=== PATIENT | female | born 1970 | race Caucasian/White ===

== ENCOUNTER 2017-01-22 11:47 | Emergency (ER) | payer BC ==
[2017-01-22 12:13] VITALS: BP 176/95; PULSE 125; RESP 18; TEMP 98.3
[2017-01-22] MEDS ORDERED: KETOROLAC 60 MG/2 ML VIAL IM STA (12:23)
--- NOTE | 2017-01-22 12:25 | ED ---
Female Urogenital HPI - General Chief complaint: Urogenital Stated complaint: POSS UTI/KIDNEY STONE Time Seen by Provider: 01/22/17 12:15 Source: patient, RN notes reviewed Mode of arrival: ambulatory Limitations: no limitations - History of Present Illness Initial comments: Patient is a 46-year-old female recently went to [facility] express a sinus of hematuria. She was diagnosed with urinary tract infection but did not started to take her antibiotics. Patient reports that over the past week she's had intermittent times of pelvic pressure. Patient reports that she is concerned she had a kidney stone. She denies abdominal pain or flank pain. Patient reports that she just continues to feel she needs to urinate. Patient states that she also was diagnosed with ketones in her urine. She has no history of diabetes. Patient denies any fever or chills. Patient's surgical history includes hysterectomy. Patient denies any other significant past medical history. - Related Data Home Medications Medication Instructions Recorded Confirmed Cetirizine HCl [Zyrtec] 10 mg PO DAILY 01/22/17 01/22/17 Allergies Allergy/AdvReac Type Severity Reaction Status Date / Time No Known Allergies Allergy Verified 01/22/17 12:09 Review of Systems ROS Statement: Those systems with pertinent positive or pertinent negative responses have been documented in the HPI. ROS Other: All systems not noted in ROS Statement are negative. Past Medical History Past Medical History: No Reported History History of Any Multi-Drug Resistant Organisms: None Reported Past Surgical History: Section Past Psychological History: No Psychological Hx Reported Smoking Status: Never smoker Past Alcohol Use History: None Reported Past Drug Use History: None Reported General Exam - General Exam Comments Initial Comments: Pleasant 46-year-old female. No distress. Limitations: no limitations General appearance: alert, in no apparent distress Head exam: Present: atraumatic, normocephalic, normal inspection Eye exam: Present: normal appearance, PERRL, EOMI. Absent: scleral icterus, conjunctival injection, periorbital swelling ENT exam: Present: normal exam, normal oropharynx, mucous membranes moist Neck exam: Present: normal inspection. Absent: tenderness, meningismus, lymphadenopathy Respiratory exam: Present: normal lung sounds bilaterally. Absent: respiratory distress, wheezes, rales, rhonchi, stridor Cardiovascular Exam: Present: regular rate, normal rhythm, normal heart sounds. Absent: systolic murmur, diastolic murmur, rubs, gallop, clicks GI/Abdominal exam: Present: soft, normal bowel sounds. Absent: distended, tenderness, guarding, rebound, rigid Extremities exam: Present: normal inspection, full ROM, normal capillary refill. Absent: tenderness, pedal edema, joint swelling, calf tenderness Back exam: Present: normal inspection Neurological exam: Present: alert, oriented X3, CN II-XII intact Psychiatric exam: Present: normal affect, normal mood Skin exam: Present: warm, dry, intact, normal color. Absent: rash Course Vital Signs 01/22/17 12:09 Temperature 98.3 F Pulse Rate 125 H Respiratory 18 Rate Blood Pressure 176/95 O2 Sat by Pulse 97 Oximetry Medical Decision Making - Medical Decision Making Patient is a 46-year-old female chief complaint of lower pelvic pressure. She saw a primary urgent care today stated that she had some blood in her urine as well as ketones. Patient reports that she's had this pelvic pressure FOR PAST WEEK. PATIENT IS CONCERNED FROM THE URGENT CARES FINDINGS OF A POSSIBLE KIDNEY STONE. SHE STATES THAT SHE HAS NO ABDOMINAL PAIN OR FLANK PAIN. PATIENT ACCU- CHEK WAS 94, URINALYSIS REVEALED NO EVIDENCE OF HEMATURIA, patient did have 2+ ketones in her urine.. PATIENT ALSO RECEIVED A KUB, KUB is negative for any acute process. No evidence of stones. Discussed the findings with the patient. Discussed that if she can complete the round of antibiotics fro the urgent care, and concerned of infection however we have no signs of infection here. Patient also advised to follow-up with [facility] specialist, patient did refuse pelvic exam. She states that she has no bulging or prolapse BLADDER. Patient agrees that she needs to follow-up with [facility]. Discussion is remain hydrated. Patient agrees with treatment plan will comply. Return parameters were discussed. - Lab Data Lab Results 01/22/17 01/22/17 01/22/17 Range/Units 12:15 12:15 12:44 POC Glucose (mg/dL) 94 (75-99) mg/dL POC Glu [employer] ID [place] Urine Color Light Yellow Urine Appearance Clear (Clear) Urine pH 5.0 (5.0-8.0) Ur Specific [place] 1.005 (1.001-1.035) Urine Protein Negative (Negative) Urine Glucose (UA) Negative (Negative) Urine Ketones 2+ H (Negative) Urine Blood Negative (Negative) Urine Nitrite Negative (Negative) Urine Bilirubin Negative (Negative) Urine Urobilinogen <2.0 (<2.0) mg/dL Ur Leukocyte Esterase Negative (Negative) Urine HCG, Qual Not Detected (Not Detectd) - Radiology Data Radiology results: report reviewed KUB was completely is negative for any acute process. Disposition Clinical Impression: Pelvic pressure in female Clinical Impression: (Ruled Out): Inguinal hernia Disposition: HOME SELF-CARE Condition: Good Instructions: Pelvic Pain in Women (ED) Additional Instructions: Patient has a follow-up with primary care provider. Patient also instructed to follow-up with [employer] RECEIVABLE ANALYST. Return to emergency department if any alarming signs or symptoms occur. Referrals: Yanely Mcneal MD [Primary Care Provider] - 1-2 days Sukhwinder Mckeon MD [STAFF PHYSICIAN] - 1-2 days Time of Disposition: 12:58
[2017-01-22 12:40] LABS: Appearance,Urine Clear (Clear); Bilirubin,Urine Negative (Negative); Glucose,Urine (UA) Negative (Negative); Ketones,Urine 2+ (Negative); Leukocyte Esterase,Urine Negative (Negative); Nitrite,Urine Negative (Negative); Protein,Urine Negative (Negative); Specific Gravity,Urine 1.005 (1.001-1.035); UA Billing (MACRO vs. MICRO) CHEM; Urobilinogen,Urine <2.0 mg/dL (<2.0)
[2017-01-22 12:45] LABS: Glucose,Whole Blood 94 mg/dL (75-99)
--- NOTE | 2017-01-22 13:11 | XR ---
EXAMINATION TYPE: XR KUB DATE OF EXAM: 01/22/2017 12:40 PM COMPARISON: NONE HISTORY: Pain TECHNIQUE: Single supine KUB image of the abdomen is obtained FINDINGS: Small bowel demonstrates no evidence for dilatation or air fluid levels. Gas and fecal material is seen in non-distended colon. No convincing evidence for pneumoperitoneum. No unusual calcifications. The lung bases are clear. The osseous structures are intact. IMPRESSION: 1. Overall nonobstructive bowel gas pattern.
== END 2017-01-22 13:11 | disposition home or self-care (01) ==
LOC: EC 11:47
DX: N94.89 Other specified conditions associated with female genital organs and menstrual cycle (principal); R82.4 Acetonuria; Z79.899 Other long term (current) drug therapy; Z90.710 Acquired absence of both cervix and uterus; Z53.20 Procedure and treatment not carried out because of patient's decision for unspecified reasons
CPT/HCPCS: 36415; 74000; 81003; 81025; 87086; 99283

== ENCOUNTER → 2017-02-06 | Outpatient (CLI) | payer BC ==
[2017-02-06 09:36] LABS: CH 30.2; CHCM 35.7; HCT 44.1 % (34.0-46.0); HDW 2.85; HGB 15.3 gm/dL (11.4-16.0); Large Platelets Flag Marked; MCH 29.6 pg (25.0-35.0); MCHC 34.7 g/dL (31.0-37.0); MCV 85.1 fL (80.0-100.0); Mean Platelet Volume 14.8; RBC 5.18 m/uL (3.80-5.40); RDW 13.3 % (11.5-15.5); WBC 5.6 k/uL (3.8-10.6)
[2017-02-06 10:58] LABS: ALT 31 U/L (9-52); AST 20 U/L (14-36); Alkaline Phosphatase 65 U/L (38-126); Anion Gap 10 mmol/L; Blood Urea Nitrogen 19 mg/dL (7-17); Calcium 9.1 mg/dL (8.4-10.2); Carbon Dioxide 24 mmol/L (22-30); Chloride 104 mmol/L (98-107); Cholesterol 181 mg/dL (<200); Glucose 92 mg/dL (74-99); HDL Cholesterol 54 mg/dL (40-60); Non-African American GFR(MDRD) >60 (>60 ml/min/1.73 sqM); Potassium 4.1 mmol/L (3.5-5.1); Sodium 138 mmol/L (137-145); Total Bilirubin 0.9 mg/dL (0.2-1.3); Total Protein 7.2 g/dL (6.3-8.2); Triglycerides 83 mg/dL (<150)
== END | disposition home or self-care (01) ==
LOC: LABWHC1 08:20
PROVIDERS: ATTEND Internal Medicine
DX: Z00.00 Encounter for general adult medical examination without abnormal findings (principal); E01.0 Iodine-deficiency related diffuse (endemic) goiter
CPT/HCPCS: 36415; 80053; 80061; 84439; 84443; 85027

== ENCOUNTER → 2017-02-14 | Outpatient (CLI) | payer BC ==
--- NOTE | 2017-02-14 13:32 | MM ---
Reason for exam: screening (asymptomatic). Baseline mammogram. History: Patient had first child at age 38. Physical Findings: Nurse did not find any significant physical abnormalities on exam. MG Screening Mammo w CAD Bilateral CC and MLO view(s) were taken. The breast tissue is heterogeneously dense. This may lower the sensitivity of mammography. No suspicious calcifications are seen. Bilateral breast nodules seen. These results were verbally communicated with the patient and result sheet given to the patient on 02/14/17. ASSESSMENT: Incomplete: need additional imaging evaluation, BI-RAD 0 RECOMMENDATION: Ultrasound of both breasts. [facility] will attempt to contact patient to return for ultrasound.
--- NOTE | 2017-02-14 13:37 | USB ---
Reason for exam: additional evaluation requested from abnormal screening. History: Patient had first child at age 38. Physical Findings: Breast exam preformed at baseline screening. US Breast Workup PIEDAD Right breast ultrasound includes all four quadrants, the retroareolar region and axilla. Finding demonstrates a 0.7 x 0.5 x 0.5cm oval, cystic lesion with vessel at 4 o'clock, a 0.5 x 0.8 x 0.3cm oval, mixed lesion at 4 o'clock, a 0.6 x 0.6 x 0.4cm oval, mixed lesion at 4 o'clock, a 1.6 x 1.7 x 1.0cm oval, cystic lesion at 6 o'clock, a 1.3 x 3.0 x 0.5cm oval, hypoechoic lesion at 6 o'clock and a 0.7 x 0.6 x 0.4cm oval, hypoechoic lesion at 12 o'clock. Left breast ultrasound includes all four quadrants, the retroareolar region and axilla. Finding demonstrates a 0.8 x 0.7 x 0.4cm oval, cystic lesion at 12:30, a 1.1 x 0.8 x 0.4cm oval, hypoechoic lesion at 6 o'clock, a 1.6 x 1.2 x 0.7cm oval, cystic lesion at 8 o'clock, a 0.8 x 0.8 x 0.5cm oval, cystic lesion at 8 o'clock, a 0.4 x 0.5 x 0.4cm oval, hypoechoic lesion at 9 o'clock and a 0.7 x 0.4 x 0.4cm oval, mixed lesion at 9 o'clock. These results were verbally communicated with the patient and result sheet given to the patient on 02/14/17. ASSESSMENT: Probably benign, BI-RAD 3 RECOMMENDATION: Ultrasound of both breasts in 6 months.
--- NOTE | 2017-02-14 13:48 | US ---
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 F/U previous GLAND SIZE: Right Lobe: 4.4 x 1.4 x 1.8 cm Overall Parenchyma: heterogenous Left Lobe: 4.8 x 1.8 x 2.0 cm Overall Parenchyma: heterogeneous Isthmus Thickness: 0.5 cm NODULES RIGHT: # of nodules measured on right: 3 1. 0.7 X 0.6 x 0.7 cm hypoechoic solid nodule at the upper pole with well-defined margins; This nod ule is wider than tall and shows intranodular vascularity. Prior size: 0.7 x 0.5 x 0.7 cm 2. 0.8 X 0.6 x 0.5 cm hypoechoic solid nodule at the upper pole with well-defined margins; This nod ule is wider than tall and shows no intranodular vascularity. Prior size: Not visualized on prior 3. 0.6 X 0.4 x 0.4 cm hypoechoic solid nodule at the mid pole with well-defined margins; This nodul e is wider than tall and shows no intranodular vascularity. Prior size: Not visualized on prior LEFT: # of nodules measured on left: 2 1. 2.2 X 1.6 x 1.6 cm hypoechoic solid nodule at the lower pole with poorly defined margins;This no dule is wider than tall and shows intranodular vascularity. Prior size: Not visualized on prior 2. 1.4 X 1.3 x 1.3 cm hypoechoic solid nodule at the mid pole with poorly defined margins; This nodu le is wider than tall and shows intranodular vascularity. Prior size: 0.6 x 0.4 x 1.2 cm Multiple, sub-centimeter nodules scattered throughout left lobe ISTHMUS: # of nodules measured in the isthmus: 0 Bilateral neck scanned, no evidence of lymphadenopathy. IMPRESSION: Stable nodule on right with new sub-centimeter nodules. Increase in size of left thyroid nodule with new lower pole nodule
== END | disposition home or self-care (01) ==
LOC: RADMAMWWP 10:50
PROVIDERS: ATTEND Internal Medicine
DX: Z12.31 Encounter for screening mammogram for malignant neoplasm of breast (principal); R92.8 Other abnormal and inconclusive findings on diagnostic imaging of breast; E04.2 Nontoxic multinodular goiter
CPT/HCPCS: 76536; 76641; G0202

== ENCOUNTER → 2017-06-11 | Outpatient (CLI) | payer BC | END | disposition home or self-care (01) | LOC: LABWHC1 08:53 | PROVIDERS: ATTEND Internal Medicine Endocrinology, Diabetes & Metabolism | DX: E04.2 Nontoxic multinodular goiter (principal) | CPT/HCPCS: 36415; 84439; 84443 ==

== ENCOUNTER → 2017-09-25 | Outpatient (CLI) | payer BC ==
--- NOTE | 2017-09-25 09:26 | USB ---
Reason for exam: follow-up at short interval from prior study. History: Patient had first child at age 38. Physical Findings: Nurse Summary: bilateral prominent nodularity, all soft, movable (nurse ts). US Breast BILAT Right breast ultrasound includes all four quadrants, the retroareolar region and axilla. Finding demonstrates a 0.8 x 0.7 x 0.5cm oval, cystic lesion at 4 o'clock, a 1.8 x 1.8 x 1.0cm oval, cystic lesion at 6 o'clock and a 0.5 x 0.5 x 0.4cm round, hypoechoic lesion at 7 o'clock. Left breast ultrasound includes all four quadrants, the retroareolar region and axilla. Finding demonstrates a 0.9 x 0.8 x 0.5cm oval, cystic lesion at 12 o'clock, a 0.5 x 0.6 x 0.4cm oval, cystic lesion at 5 o'clock, a 0.9 x 1.1 x 0.6cm oval, cystic lesion at 6 o'clock and a 1.3 x 1.4 x 0.9cm oval, cystic lesion at 8 o'clock. These results were verbally communicated with the patient and result sheet given to the patient on 09/25/17. ASSESSMENT: Probably benign, BI-RAD 3 RECOMMENDATION: Follow-up diagnostic mammogram and ultrasound of both breasts in 6 months. Back on schedule.
== END | disposition home or self-care (01) ==
LOC: RADUSWWP 08:13
PROVIDERS: ATTEND Internal Medicine
DX: N64.59 Other signs and symptoms in breast (principal)

== ENCOUNTER → 2017-12-29 | Outpatient (CLI) | payer BC ==
[2017-12-29 08:24] LABS: T4, Free (Free Thyroxine) 1.17 ng/dL (0.78-2.19)
== END | disposition home or self-care (01) ==
LOC: LABWHC1 07:28
PROVIDERS: ATTEND Internal Medicine Endocrinology, Diabetes & Metabolism
DX: E04.2 Nontoxic multinodular goiter (principal)
CPT/HCPCS: 36415; 84439; 84443

== ENCOUNTER → 2018-10-29 | Outpatient (CLI) | payer BC ==
[2018-10-29 09:34] LABS: T4, Free (Free Thyroxine) 1.08 ng/dL (0.78-2.19)
--- NOTE | 2018-10-29 16:39 | US ---
EXAMINATION TYPE: US thyroid st tissue head/neck DATE OF EXAM: 10/29/2018 COMPARISON: 02/14/2017 CLINICAL HISTORY: E04.2 Nontoxic multinodular goiter. GLAND SIZE: Right Lobe: 4.3x 1.8x1.7 cm Overall Parenchyma: heterogenous Left Lobe: 5.0x 2.0x2.1 cm Overall Parenchyma: heterogeneous Isthmus Thickness: 0.5 cm NODULES RIGHT: # of nodules measured on right: 3 1. 0.9 X 0.7 x 0.5 cm solid nodule at the upper pole with well-defined margins; . This nodule is w ider than tall and shows intranodular vascularity. Prior size: 0.7 x 0.5 x 0.7 cm 2. 0.9 X 0.8 x 0.7 cm solid nodule at the upper/mid pole with well-defined margins; . This nodule i s wider than tall and shows intranodular vascularity. Prior size: 0.8 x 0.6 x 0.5 cm 3. 0.8 X 0.6 x 0.3 cm solid nodule at the mid pole with well-defined margins; . This nodule is wide r than tall and shows no intranodular vascularity. Prior size: 0.6 x 0.4 x 0.4 cm LEFT: # of nodules measured on left: 2 1. 3.4 X 1.8 x 2.3 cm solid nodule at the lower pole with poorly defined margins; . This nodule is wider than tall and shows intranodular vascularity. Prior size: 2.2 x 1.6 x 1.6 cm 2. 1.9 X 1.1 x 1.0 cm mixed nodule at the mid pole with poorly defined margins; . This nodule is wi qiana than tall and shows intranodular vascularity. Prior size: 1.4 x 1.3 x 1.3 cm ISTHMUS: # of nodules measured in the isthmus: 0 Bilateral neck scanned, no evidence of lymphadenopathy. IMPRESSION: 1. Enlarging left lobe thyroid nodules. The largest measures 3.4 x 1.8 x 2.3 cm. 2. Subcentimeter nodules on the right may be enlarging as well.
== END ==
LOC: RADUSWWP 08:23
PROVIDERS: ATTEND Internal Medicine Endocrinology, Diabetes & Metabolism
DX: E04.2 Nontoxic multinodular goiter (principal)
CPT/HCPCS: 36415; 76536; 84439; 84443

== ENCOUNTER → 2019-02-17 | Outpatient (CLI) | payer BC ==
[2019-02-17 16:36] LABS: T4, Free (Free Thyroxine) 1.2 ng/dL (0.80-1.80)
== END | disposition home or self-care (01) ==
LOC: LABWHC1 08:41
PROVIDERS: ATTEND Internal Medicine Endocrinology, Diabetes & Metabolism
DX: E04.2 Nontoxic multinodular goiter (principal)
CPT/HCPCS: 36415; 84439; 84443

== ENCOUNTER → 2019-06-09 | Outpatient (CLI) | payer BC ==
[2019-06-09 16:59] LABS: African American GFR (CKD) 77.7 (60.0-200.0); Albumin 4.7 g/dL (3.80-4.90); Albumin/Globulin Ratio 2.47 (1.60-3.17); Calcium 9.4 mg/dL (8.7-10.3); Globulin 1.9 g/dL (1.6-3.3); Potassium 4.4 mmol/L (3.5-5.5); Total Bilirubin 0.7 mg/dL (0.3-1.2); Total Protein 6.6 g/dL (6.2-8.2)
[2019-06-09 17:40] LABS: T4, Free (Free Thyroxine) 0.3 ng/dL (0.80-1.80)
== END | disposition home or self-care (01) ==
LOC: LABWHC1 10:05
PROVIDERS: ATTEND Internal Medicine Endocrinology, Diabetes & Metabolism
DX: E04.2 Nontoxic multinodular goiter (principal)
CPT/HCPCS: 36415; 80053; 84439; 84443

== ENCOUNTER → 2019-08-10 | Outpatient (CLI) | payer BC ==
[2019-08-10 12:01] LABS: ALT 39 U/L (8-44); AST 22 U/L (13-35); African American GFR (CKD) 88.2 (60.0-200.0); Albumin/Globulin Ratio 2.39 (1.60-3.17); Alkaline Phosphatase 68 U/L (41-126); BUN/Creat Ratio 18.89 Ratio (12.00-20.00); Calcium 8.9 mg/dL (8.7-10.3); Carbon Dioxide 23.5 mmol/L (21.6-31.8); Chloride 106 mmol/L (96-109); Globulin 1.8 g/dL (1.6-3.3); Glucose 100 mg/dL (70-110); Sodium 140 mmol/L (135-145); Total Bilirubin 0.6 mg/dL (0.3-1.2); Total Protein 6.1 g/dL (6.2-8.2)
== END | disposition home or self-care (01) ==
LOC: LABWHC1 06:44
PROVIDERS: ATTEND Internal Medicine Endocrinology, Diabetes & Metabolism
DX: E04.2 Nontoxic multinodular goiter (principal)
CPT/HCPCS: 36415; 80053; 84439; 84443

== ENCOUNTER → 2019-10-05 | Outpatient (CLI) | payer BC | END | disposition home or self-care (01) | LOC: LABWHC1 07:57 | PROVIDERS: ATTEND Internal Medicine Endocrinology, Diabetes & Metabolism | DX: E03.8 Other specified hypothyroidism (principal) | CPT/HCPCS: 36415; 84443 ==

== ENCOUNTER → 2019-11-04 | Outpatient (CLI) | payer BC ==
--- NOTE | 2019-11-05 11:24 | MM ---
Reason for exam: screening (asymptomatic). Last mammogram was performed 2 years and 9 months ago. History: Patient had first child at age 38. Took hormonal contraceptives for 2 years. Physical Findings: A clinical breast exam by your physician is recommended on an annual basis and results should be correlated with mammographic findings. MG Screening Mammo w CAD Bilateral CC and MLO view(s) were taken. Prior study comparison: February 14, 2017, bilateral MG screening mammo w CAD. There is an increased size of a right central upper middle depth mass 7cm from nipple measuring 2.1 x 1.3cm and a left upper inner quadrant mass 8cm from nipple measuring 8mm. ASSESSMENT: Incomplete: need additional imaging evaluation, BI-RAD 0 RECOMMENDATION: Ultrasound of both breasts. [facility] will attempt to contact patient to return for ultrasound.
== END | disposition home or self-care (01) ==
LOC: RADMAMWWP 07:56
PROVIDERS: ATTEND Internal Medicine
DX: Z12.31 Encounter for screening mammogram for malignant neoplasm of breast (principal)
CPT/HCPCS: 77067

== ENCOUNTER → 2019-11-16 | Outpatient (CLI) | payer BC | END | disposition home or self-care (01) | LOC: LABWHC1 09:37 | PROVIDERS: ATTEND Internal Medicine Endocrinology, Diabetes & Metabolism | DX: E03.8 Other specified hypothyroidism (principal) | CPT/HCPCS: 36415; 84443 ==

== ENCOUNTER → 2019-11-16 | Outpatient (CLI) | payer BC ==
--- NOTE | 2019-11-16 12:06 | USB ---
Reason for exam: additional evaluation requested from abnormal screening. History: Patient had first child at age 38. Took hormonal contraceptives for 2 years. Physical Findings: Nurse Summary: Patient complains of discomfort comes and goes with cycle (nurse TM). US Breast Workup Limited PIEDAD Technologist: Akilah Guevara Right limited breast ultrasound including focal area of concern, retroareolar and axilla demonstrates a 2.2 x 1.4 x 1.2cm cystic lesion at 11 o'clock, a 0.7 x 0.6 x 0.5cm circular, cystic lesion at 3 o'clock and a 0.7 x 0.8 x 0.6cm circular, probable mucous filled cyst at the posterior nipple. Left limited breast ultrasound including focal area of concern, retroareolar and axilla demonstrates a 0.7 x 0.8 x 0.6cm circular, cystic lesion at 9 o'clock. Multiple simple appearing cysts. Largest measured. These results were verbally communicated with the patient and result sheet given to the patient on 11/16/19. ASSESSMENT: Probably benign, BI-RAD 3 RECOMMENDATION: Ultrasound of the right breast in 3 months.
== END | disposition home or self-care (01) ==
LOC: RADUSWWP 09:34
PROVIDERS: ATTEND Internal Medicine
DX: R92.8 Other abnormal and inconclusive findings on diagnostic imaging of breast (principal)

== ENCOUNTER 2021-11-07 22:44 | Observation (INO) | payer BC ==
[2021-11-07] MEDS ORDERED: SODIUM CHLORIDE 0.9% 1,000 ML IV STA (22:57)
--- NOTE | 2021-11-07 23:08 | ED ---
Abdominal Pain HPI - General Chief Complaint: Abdominal Pain Stated Complaint: Chest Pain, Abdominal/Back Pain Time Seen by Provider: 11/07/21 22:53 Source: patient Mode of arrival: ambulatory Limitations: no limitations - History of Present Illness Initial Comments: This is a pleasant 50-year-old female with a history of thyroid problems. Lizandro gil presents to the emergency department today complaining of intermittent abdominal pain which For the past 3 or 4 days. She is describing pain which is sharp in nature located in the right upper quadrant, does radiate to the back near the right shoulder blade at times. Also radiates toward the epigastric area times. No nausea or vomiting. No changes in bowel movements. Unrelated to activity other than that it may be exacerbated by eating. Night it started at about 6:30 PM. Patient ate dinner at about 5:30. This dinner consisted of mashed potatoes and gravy. No headache, no fever or chills, no changes in vision or hearing, no sore throat or difficulty with speech, no neck pain, no chest pain, no nausea or vomiting, no changes in urination or bowel movements, no numbness or tingling, no extremity pain, no skin rashes or lesions. MD Complaint: abdominal pain - Related Data Home Medications Medication Instructions Recorded Confirmed Cetirizine HCl [Zyrtec] 10 mg PO DAILY 01/22/17 01/22/17 Previous Rx's Medication Instructions Recorded Acetaminophen [Tylenol] 500 mg PO Q4-6H PRN #24 tab 11/08/21 Ibuprofen [Motrin] 600 mg PO Q8HR PRN #30 tab 11/08/21 Allergies Allergy/AdvReac Type Severity Reaction Status Date / Time No Known Allergies Allergy Verified 01/22/17 12:09 Review of Systems ROS Statement: Those systems with pertinent positive or pertinent negative responses have been documented in the HPI. ROS Other: All systems not noted in ROS Statement are negative. Past Medical History Past Medical History: No Reported History History of Any Multi-Drug Resistant Organisms: None Reported Past Surgical History: Section Past Psychological History: No Psychological Hx Reported Smoking Status: Never smoker Past Alcohol Use History: None Reported Past Drug Use History: None Reported General Exam - General Exam Comments Initial Comments: Patient does not appear to be ill or toxic. Vital signs reviewed. Limitations: no limitations General appearance: alert, in no apparent distress Head exam: Present: atraumatic, normocephalic, normal inspection Eye exam: Present: normal appearance, PERRL, EOMI. Absent: scleral icterus, conjunctival injection, periorbital swelling ENT exam: Present: normal exam, mucous membranes moist Neck exam: Present: normal inspection. Absent: tenderness, meningismus, lymphadenopathy Respiratory exam: Present: normal lung sounds bilaterally. Absent: respiratory distress, wheezes, rales, rhonchi, stridor Cardiovascular Exam: Present: regular rate, normal rhythm, normal heart sounds. Absent: systolic murmur, diastolic murmur, rubs, gallop, clicks GI/Abdominal exam: Present: soft, tenderness, normal bowel sounds, other (Mild right upper quadrant tenderness to palpation). Absent: distended, guarding, rebound, rigid Extremities exam: Present: normal inspection, full ROM, normal capillary refill. Absent: tenderness, pedal edema, joint swelling, calf tenderness Back exam: Present: normal inspection Neurological exam: Present: alert, oriented X3, CN II-XII intact Psychiatric exam: Present: normal affect, normal mood Skin exam: Present: warm, dry, intact, normal color. Absent: rash Course Vital Signs 11/07/21 11/08/21 11/08/21 22:48 01:12 02:22 Temperature 97 F L Pulse Rate 107 H 101 H 96 Respiratory 20 16 16 Rate Blood Pressure 160/95 151/91 148/97 O2 Sat by Pulse 99 98 96 Oximetry - Reevaluation(s) Reevaluation #1: 11/08/21 01:31 Medical record is reviewed Symptoms are improved here in the emergency department, however, patient still remains tachycardic Patient is informed of results and questions answered Patient in no distress 11/08/21 02:12 Medical Decision Making - Medical Decision Making Patient presents with recurrent right upper quadrant abdominal pain. Signs, symptoms, presentation most consistent with gallbladder disease/biliary colic. Pancreatitis, peptic ulcer disease, perforated bowel are less likely. Does not appear to be consistent with cardiopulmonary disease. Does not appear to be consistent with cardiopulmonary disease. Patient reevaluated prior to discharge. Patient's liver enzymes are normal. Patient was improved pain khan. After initial pain medication patient states her pain was down to a level II or 3. However she remained tachycardic. Due to this as well as the questionable gallbladder wall thickening. Patient was given dose of Zosyn. We'll admit the patient to surgery for further evaluation. All findings discussed with the patient. All questions answered. The case was discussed in detail with ED attending physician. Presentation, findings, treatment plan discussed in detail. Currently awaiting callback from the on-call surgeon. - Lab Data Result diagrams: 11/07/21 23:04 11/07/21 23:04 Lab Results 11/07/21 11/07/21 11/07/21 Range/Units 23:04 23:04 23:04 WBC 11.1 H (3.8-10.6) k/uL RBC 5.27 (3.80-5.40) m/uL Hgb 15.8 (11.4-16.0) gm/dL Hct 46.2 H (34.0-46.0) % MCV 87.6 (80.0-100.0) fL MCH 30.1 (25.0-35.0) pg MCHC 34.3 (31.0-37.0) g/dL RDW 13.5 (11.5-15.5) % Plt Count 197 (150-450) k/uL MPV 11.3 Neutrophils % 84 % Lymphocytes % 9 % Monocytes % 4 % Eosinophils % 2 % Basophils % 0 % Neutrophils # 9.3 H (1.3-7.7) k/uL Lymphocytes # 1.0 (1.0-4.8) k/uL Monocytes # 0.5 (0-1.0) k/uL Eosinophils # 0.2 (0-0.7) k/uL Basophils # 0.0 (0-0.2) k/uL Sodium (137-145) mmol/L Potassium (3.5-5.1) mmol/L Chloride (98-107) mmol/L Carbon Dioxide (22-30) mmol/L Anion Gap mmol/L BUN (7-17) mg/dL Creatinine (0.52-1.04) mg/dL Est GFR (CKD-EPI)AfAm (>60 ml/min/1.73 sqM) Est GFR (CKD-EPI)NonAf (>60 ml/min/1.73 sqM) Glucose (74-99) mg/dL Calcium (8.4-10.2) mg/dL Total Bilirubin (0.2-1.3) mg/dL AST (14-36) U/L ALT (4-34) U/L Alkaline Phosphatase (38-126) U/L Troponin I (0.000-0.034) ng/mL Total Protein (6.3-8.2) g/dL Albumin (3.5-5.0) g/dL Amylase (30-110) U/L Lipase (23-300) U/L Urine Color Yellow Urine Appearance Cloudy H (Clear) Urine pH 5.5 (5.0-8.0) Ur Specific [place] 1.036 H (1.001-1.035) Urine Protein 1+ H (Negative) Urine Glucose (UA) Negative (Negative) Urine Ketones 2+ H (Negative) Urine Blood Large H (Negative) Urine Nitrite Negative (Negative) Urine Bilirubin Negative (Negative) Urine Urobilinogen 2.0 (<2.0) mg/dL Ur Leukocyte Esterase Small H (Negative) Urine RBC >182 H (0-5) /hpf Urine WBC 6 H (0-5) /hpf Ur Squamous Epith Cells 3 (0-4) /hpf Urine Bacteria Rare H (None) /hpf Urine Mucus Rare H (None) /hpf Urine HCG, Qual Not Detected (Not Detectd) 11/07/21 11/07/21 Range/Units 23:04 23:04 WBC (3.8-10.6) k/uL RBC (3.80-5.40) m/uL Hgb (11.4-16.0) gm/dL Hct (34.0-46.0) % MCV (80.0-100.0) fL MCH (25.0-35.0) pg MCHC (31.0-37.0) g/dL RDW (11.5-15.5) % Plt Count (150-450) k/uL MPV Neutrophils % % Lymphocytes % % Monocytes % % Eosinophils % % Basophils % % Neutrophils # (1.3-7.7) k/uL Lymphocytes # (1.0-4.8) k/uL Monocytes # (0-1.0) k/uL Eosinophils # (0-0.7) k/uL Basophils # (0-0.2) k/uL Sodium 136 L (137-145) mmol/L Potassium 4.1 (3.5-5.1) mmol/L Chloride 105 (98-107) mmol/L Carbon Dioxide 21 L (22-30) mmol/L Anion Gap 10 mmol/L BUN 21 H (7-17) mg/dL Creatinine 0.85 (0.52-1.04) mg/dL Est GFR (CKD-EPI)AfAm >90 (>60 ml/min/1.73 sqM) Est GFR (CKD-EPI)NonAf 81 (>60 ml/min/1.73 sqM) Glucose 131 H (74-99) mg/dL Calcium 9.2 (8.4-10.2) mg/dL Total Bilirubin 0.8 (0.2-1.3) mg/dL AST 24 (14-36) U/L ALT 22 (4-34) U/L Alkaline Phosphatase 85 (38-126) U/L Troponin I 0.016 (0.000-0.034) ng/mL Total Protein 7.4 (6.3-8.2) g/dL Albumin 4.4 (3.5-5.0) g/dL Amylase 49 (30-110) U/L Lipase 141 (23-300) U/L Urine Color Urine Appearance (Clear) Urine pH (5.0-8.0) Ur Specific [place] (1.001-1.035) Urine Protein (Negative) Urine Glucose (UA) (Negative) Urine Ketones (Negative) Urine Blood (Negative) Urine Nitrite (Negative) Urine Bilirubin (Negative) Urine Urobilinogen (<2.0) mg/dL Ur Leukocyte Esterase (Negative) Urine RBC (0-5) /hpf Urine WBC (0-5) /hpf Ur Squamous Epith Cells (0-4) /hpf Urine Bacteria (None) /hpf Urine Mucus (None) /hpf Urine HCG, Qual (Not Detectd) - Radiology Data Radiology results: report reviewed, image reviewed Disposition Clinical Impression: Cholecystitis with cholelithiasis Disposition: ADMITTED IP TO THIS HOSP Condition: Fair Instructions (If sedation given, give patient instructions): Gallstones (ED), Low Fat Diet (ED) Additional Instructions: Adhere to a low fat, low grease diet, call the surgeon in the morning to schedule a follow-up appointment. Follow-up with your regular physician as directed. Return to the ER immediately if any symptoms worsen, new symptoms arise, or any other problems develop. Return immediately if fever develops or pain increases. Prescriptions: Ibuprofen [Motrin] 600 mg PO Q8HR PRN #30 tab PRN Reason: Pain Acetaminophen [Tylenol] 500 mg PO Q4-6H PRN #24 tab PRN Reason: Pain Is patient prescribed a controlled substance at d/c from ED?: No
[2021-11-07 23:35] LABS: Basophils % (A) 0 %; Eosinophils # (A) 0.2 k/uL (0-0.7); Eosinophils % (A) 2 %; HCT 46.2 % (34.0-46.0); HGB 15.8 gm/dL (11.4-16.0); Lymphocytes % (A) 9 %; MCH 30.1 pg (25.0-35.0); MCHC 34.3 g/dL (31.0-37.0); MCV 87.6 fL (80.0-100.0); Mean Platelet Volume 11.3; Monocytes # (A) 0.5 k/uL (0-1.0); Monocytes % (A) 4 %; Neutrophils # (A) 9.3 k/uL (1.3-7.7); Neutrophils % (A) 84 %; Platelet Count 197 k/uL (150-450); RBC 5.27 m/uL (3.80-5.40); RDW 13.5 % (11.5-15.5); WBC 11.1 k/uL (3.8-10.6)
[2021-11-07 23:47] LABS: Appearance,Urine Cloudy (Clear); Bacteria,Urine Rare /hpf; Bilirubin,Urine Negative (Negative); Blood,Urine Large (Negative); Color,Urine Yellow; Glucose,Urine (UA) Negative (Negative); Ketones,Urine 2+ (Negative); Leukocyte Esterase,Urine Small (Negative); Mucus,Urine Rare /hpf; Nitrite,Urine Negative (Negative); PH, Urine 5.5 (5.0-8.0); Protein,Urine 1+ (Negative); RBC,Urine >182 /hpf (0-5); Specific Gravity,Urine 1.036 (1.001-1.035); Squamous Epithelial Cell,Urine 3 /hpf (0-4); WBC,Urine 6 /hpf (0-5)
[2021-11-08 00:08] LABS: ALT 22 U/L (4-34); AST 24 U/L (14-36); African American GFR (CKD) >90 (>60 ml/min/1.73 sqM); Albumin 4.4 g/dL (3.5-5.0); Alkaline Phosphatase 85 U/L (38-126); Amylase 49 U/L (30-110); Anion Gap 10 mmol/L; Blood Urea Nitrogen 21 mg/dL (7-17); Calcium 9.2 mg/dL (8.4-10.2); Carbon Dioxide 21 mmol/L (22-30); Chloride 105 mmol/L (98-107); Glucose 131 mg/dL (74-99); Lipase 141 U/L (23-300); Non-African American GFR(CKD) 81 (>60 ml/min/1.73 sqM); Potassium 4.1 mmol/L (3.5-5.1); Sodium 136 mmol/L (137-145); Total Bilirubin 0.8 mg/dL (0.2-1.3); Total Protein 7.4 g/dL (6.3-8.2)
--- NOTE | 2021-11-08 00:27 | US ---
EXAMINATION TYPE: US abdomen limited DATE OF EXAM: 11/07/2021 COMPARISON: NONE CLINICAL HISTORY: Right upper quadrant abdominal pain. RUQ pain. EXAM MEASUREMENTS: Liver Length: 15.2 cm Gallbladder Wall: 0.36 cm CBD: 0.4 cm Right Kidney: 10.1 x 4.6 x 3.9 cm Limited due to gas. Pancreas: Slightly limited visibility of tail. Liver: Increased attenuation. Appears heterogeneous. Gallbladder: Multiple hyperechoic foci seen within the gallbladder. Wall measures 0.36 cm- upper queen its of normal versus thickened. Evidence for sonographic Canseco's sign: No CBD: Portions seen appear wnl Right Kidney: No hydronephrosis or masses seen IMPRESSION: Numerous gallstones. Borderline thickening of the gallbladder wall. No dilated ducts. No discrete liver mass.
--- NOTE | 2021-11-08 00:36 | XR ---
EXAMINATION TYPE: XR abdomen acute w cxr DATE OF EXAM: 11/08/2021 COMPARISON: Abdomen x-ray 01/22/2017 HISTORY: Right upper quadrant pain TECHNIQUE: 4 views FINDINGS: Heart and mediastinum are normal. Lungs are clear. Diaphragm is normal. Bowel gas pattern i s normal. There is no sign of intestinal obstruction or pneumoperitoneum. Fecal pattern is normal. Th ere is no evidence of a mass. IMPRESSION: Nonacute abdomen. Normal chest. No change.
--- NOTE | 2021-11-08 01:27 | CT ---
EXAMINATION TYPE: CT abdomen pelvis wo con DATE OF EXAM: 11/08/2021 COMPARISON: None HISTORY: right flank pain CT DLP: 784.1 mGycm Automated exposure control for dose reduction was used. Images obtained from the diaphragm to the floor the pelvis without contrast. Lung bases are clear of consolidation. There is no pleural effusion. There is no pericardial effusion . There is small hiatal hernia. Stomach is intact. Liver spleen pancreas appear intact. Bile ducts are nondilated. There are multiple calcified gallston es. There is no adrenal mass. Kidneys have normal size. There are left-sided renal parapelvic cysts. Ther e are small bilateral renal calculi up to 3 mm. The ureters are not dilated. There is no retroperiton eal adenopathy. The bladder distends smoothly. There is no abnormal hernia. Uterus is anteverted. The re is no free fluid in the pelvis. There is no evidence of a pelvic mass. There is no inguinal hernia . The cecum extends to the left side of the abdomen. Terminal ileum appears normal. Appendix is superio r and appears normal. There is 3 x 2 cm umbilical hernia contains fat. Lumbar vertebrae have normal alignment. There is no compression fracture. Bony pelvis is intact. Hip joints are intact. There is mild acetabular spurring. Sacroiliac joints are intact. IMPRESSION: Normal appendix. Bilateral nonobstructing renal calculi. Left-sided renal pelvic cyst. Cholelithiasis. No dilated ducts.
[2021-11-08] MEDS: KETOROLAC 15 MG/ML 1 ML VIAL IVP STA ×2 (01:37→16:07)
[2021-11-08] MEDS: PIPERACILLIN-TAZOBACTAM 3.375 GM in SODIUM CHLORIDE 0.9% 100 ML IVPB SCH ×3 (03:04→18:06)
[2021-11-08] MEDS ORDERED: NALOXONE 0.4 MG/ML 1 ML VIAL IV PRN (03:05)
[2021-11-08] MEDS ORDERED: MORPHINE SULFATE 4 MG/ML SYRINGE IV PRN (03:05)
[2021-11-08] MEDS ORDERED: ONDANSETRON 4 MG/2 ML VIAL IVP PRN ×2 (03:05→15:43)
[2021-11-08] MEDS: SODIUM CHLORIDE 0.9% 1,000 ML IV SCH ×3 (05:03→21:33)
[2021-11-08] MEDS ORDERED: INDOCYANINE GREEN 25 MG VIAL IV PRN (06:06)
[2021-11-08] MEDS ORDERED: HEPARIN SODIUM,PORCINE/PF 5,000 UNIT/0.5 ML SYRINGE SQ PRN (06:07)
[2021-11-08] MEDS: ACETAMINOPHEN TAB 500 MG TAB PO SCH ×3 (06:14→17:30)
--- NOTE | 2021-11-08 09:17 | P.GSHP ---
<Susana Viera - Last Filed: 11/08/21 09:09> History of Present Illness H&P Date: 11/08/21 CHIEF COMPLAINT: Abdominal pain HISTORY OF PRESENT ILLNESS: This is a 50-year-old female who presented to the emergency room with complaints of right upper quadrant pain, epigastric pain and pain that radiated to her back after eating mashed potatoes and gravy last night. Patient reports having a similar episode of pain in September after eating. She denies any nausea or vomiting. She does have a family history of gallbladder disease cholecystectomies. She has been tachycardic with heart rate of 107 and white count elevated 11.1 ultrasound had shown numerous gallstones and borderline thickened gallbladder wall. Patient is started on antibiotics and is scheduled for cholecystectomy today. She denies any fever chills or sweats. Denies any bowel changes. Past surgical history includes . Denies any cardiac history PAST MEDICAL HISTORY: Hypothyroidism PAST SURGICAL HISTORY: See list. MEDICATIONS: See list. ALLERGIES: See list. SOCIAL HISTORY: No illicit drug use. REVIEW OF SYSTEMS: CONSTITUTIONAL: Denies fever or chills. HEENT: Denies blurred vision, vision changes, or eye pain. Denies hemoptysis ENDOCRINE: Denies heat or cold intolerance. CARDIOVASCULAR: Denies chest pain or pressure. RESPIRATORY: No shortness of breath. GASTROINTESTINAL: Denies abdominal pain. Denies nausea or vomiting. NEURO: Denies history of seizures. PSYCH: No depression or suicidal ideation HEMATOLOGIC: Denies bleeding disorders. LYMPHATIC: The patient denies any lumps and bumps around the neck. GENITOURINARY: Denies any blood in urine or increased urinary frequency. MUSCULOSKELETAL: Denies myalgias. Denies joint swelling. Denies decreased range of motion beyond patients baseline. SKIN: Denies pruitis. Denies rash. PHYSICAL EXAM: VITAL SIGNS: Reviewed GENERAL: Well-developed in no acute distress. HEENT: No sclera icterus. Extraocular movements grossly intact. Moist buccal mucosa. Head is atraumatic, normocephalic. Hears conversational speech. No nasal drainage. NECK: Supple without lymphadenopathy. CHEST: Non-labored respirations and equal bilateral excursions. CARDIOVASCULAR: Palpable 2+ radial pulses. ABDOMEN: Soft. Nondistended. Tenderness with palpation of the right upper quadrant MUSCULOSKELETAL: No clubbing or cyanosis. NEUROLOGIC: No focal or lateralizing signs. Cranial nerves II through XII grossly intact. PSYCH: Appropriate affect. Alert and oriented to person, place and time. SKIN: Well perfused. Good skin turgor. LABORATORY DATA: WBC 11.1 hemoglobin 15.8 platelets 197 Sodium 136 potassium 4.1 creatinine 0.85 AST 24 ALT 22 alk phos 85 Lipase 141 EKG normal sinus rhythm IMAGING: Abdominal ultrasound numerous gallstones. Borderline thickening of the gallbladder wall. No dilated ducts. No discrete liver mass Computed tomography scan abdomen and pelvis normal appendix. Bilateral nonobstructing renal calculi. Left-sided renal pelvic cyst. Cholelithiasis. No dilated ducts. ASSESSMENT: 1. Acute holecystitis with cholelithiasis and gallbladder wall thickening noted on ultrasound 2. Leukocytosis PLAN: -Patient scheduled for robotic cholecystectomy today with Dr. Ta -Keep patient nothing by mouth -Continue IV antibiotics -Continue pain medication as needed -Continue IV fluids Physician Industrial [employer] F[employer] Helper note has been reviewed by physician. Signing provider agrees with the documented findings, assessment, and plan of care. Past Medical History Past Medical History: No Reported History History of Any Multi-Drug Resistant Organisms: None Reported Past Surgical History: Section Additional Past Surgical History / Comment(s): States thyroid removed Past Psychological History: No Psychological Hx Reported Smoking Status: Never smoker Past Alcohol Use History: None Reported Past Drug Use History: None Reported Medications and Allergies Home Medications Medication Instructions Recorded Confirmed Type Cetirizine HCl [Zyrtec] 10 mg PO DAILY PRN 01/22/17 11/08/21 History Acetaminophen Tab [Tylenol Tab] 1,000 mg PO Q6HR PRN #30 tablet 11/08/21 Rx Ibuprofen [Motrin] 600 mg PO Q8HR PRN #30 tab 11/08/21 Rx Levothyroxine Sodium [Synthroid] 88 mcg PO DAILY 11/08/21 11/08/21 History Simethicone [Gas-X] 125 mg PO AC-TID PRN #20 capsule 11/08/21 Rx Allergies Allergy/AdvReac Type Severity Reaction Status Date / Time No Known Allergies Allergy Verified 11/08/21 12:17 Surgical - Exam Vital Signs Temp Pulse Resp BP Pulse Ox 97 F L 107 H 20 160/95 99 11/07/21 22:48 11/07/21 22:48 11/07/21 22:48 11/07/21 22:48 11/07/21 22:48 Results - Labs 11/07/21 23:04 11/07/21 23:04 Abnormal Lab Results - Last 24 Hours (Table) 11/07/21 11/07/21 11/07/21 Range/Units 23:04 23:04 23:04 WBC 11.1 H (3.8-10.6) k/uL Hct 46.2 H (34.0-46.0) % Neutrophils # 9.3 H (1.3-7.7) k/uL Sodium 136 L (137-145) mmol/L Carbon Dioxide 21 L (22-30) mmol/L BUN 21 H (7-17) mg/dL Glucose 131 H (74-99) mg/dL Urine Appearance Cloudy H (Clear) Ur Specific [place] 1.036 H (1.001-1.035) Urine Protein 1+ H (Negative) Urine Ketones 2+ H (Negative) Urine Blood Large H (Negative) Ur Leukocyte Esterase Small H (Negative) Urine RBC >182 H (0-5) /hpf Urine WBC 6 H (0-5) /hpf Urine Bacteria Rare H (None) /hpf Urine Mucus Rare H (None) /hpf Diabetes panel 11/07/21 Range/Units 23:04 Sodium 136 L (137-145) mmol/L Potassium 4.1 (3.5-5.1) mmol/L Chloride 105 (98-107) mmol/L Carbon Dioxide 21 L (22-30) mmol/L BUN 21 H (7-17) mg/dL Creatinine 0.85 (0.52-1.04) mg/dL Glucose 131 H (74-99) mg/dL Calcium 9.2 (8.4-10.2) mg/dL AST 24 (14-36) U/L ALT 22 (4-34) U/L Alkaline Phosphatase 85 (38-126) U/L Total Protein 7.4 (6.3-8.2) g/dL Albumin 4.4 (3.5-5.0) g/dL Calcium panel 11/07/21 Range/Units 23:04 Calcium 9.2 (8.4-10.2) mg/dL Albumin 4.4 (3.5-5.0) g/dL Pituitary panel 11/07/21 Range/Units 23:04 Sodium 136 L (137-145) mmol/L Potassium 4.1 (3.5-5.1) mmol/L Chloride 105 (98-107) mmol/L Carbon Dioxide 21 L (22-30) mmol/L BUN 21 H (7-17) mg/dL Creatinine 0.85 (0.52-1.04) mg/dL Glucose 131 H (74-99) mg/dL Calcium 9.2 (8.4-10.2) mg/dL Adrenal panel 11/07/21 Range/Units 23:04 Sodium 136 L (137-145) mmol/L Potassium 4.1 (3.5-5.1) mmol/L Chloride 105 (98-107) mmol/L Carbon Dioxide 21 L (22-30) mmol/L BUN 21 H (7-17) mg/dL Creatinine 0.85 (0.52-1.04) mg/dL Glucose 131 H (74-99) mg/dL Calcium 9.2 (8.4-10.2) mg/dL Total Bilirubin 0.8 (0.2-1.3) mg/dL AST 24 (14-36) U/L ALT 22 (4-34) U/L Alkaline Phosphatase 85 (38-126) U/L Total Protein 7.4 (6.3-8.2) g/dL Albumin 4.4 (3.5-5.0) g/dL <Eugenia Ta N - Last Filed: 11/08/21 16:23> History of Present Illness CHIEF COMPLAINT: Cholecystitis HISTORY OF PRESENT ILLNESS: The patient is a 50-year-old female with hypoth yroidism including seasonal ALLERGIES who presents with history of epigastric including right upper quadrant abdominal pain radiating to her right upper back across the day. Last meal included mashed potatoes and gravy. She has strong family history of gallbladder disease and her mother including relatives such as cousins. She reports her pain was severe bringing her to the emergency room. Chemistries were elevated. Leukocytosis. Patient admitted for acute cholecystitis. PAST MEDICAL HISTORY: Please see list PAST SURGICAL HISTORY: Please see list MEDICATIONS: Please see list ALLERGIES: Please see list SOCIAL HISTORY: Please see list FAMILY HISTORY: Please see list REVIEW OF ORGAN SYSTEMS: CONSTITUTIONAL: No reports of fevers or chills. HEENT: Denies any troubles with the vision or hearing. ENDOCRINE: Has hypothyroidism. No diabetes. RESPIRATORY: No recent pneumonias. Has seasonal ALLERGIES. CARDIOVASCULAR: Denies chest pain or palpitations GI: No blood in stools or constipation. MUSCULOSKELETAL: Has occasional joint pain including back pain. NEURO: No seizure disorders or headaches. No recent stroke. PSYCH: No depression or suicidal ideation. GENITOURINARY: No active blood in urine. No urinary hesitancy. HEMATOLOGIC: No personal or family history of DVTs or pulmonary emboli. SKIN: No skin cancer. PHYSICAL EXAM: VITAL SIGNS: Afebrile vital signs stable GENERAL: Well-developed pleasant in no acute distress. HEENT: No scleral icterus. Extraocular movements grossly intact. Moist buccal mucosa. NECK: Supple without lymphadenopathy. CHEST: Unlabored respirations. Equal bilateral excursions. CARDIOVASCULAR: Regular rate regular rhythm rhythm. Distal 2+ pulses. ABDOMEN: Soft, nondistended. Tender along the epigastrium and right upper quadr ant. MUSCULOSKELETAL: No clubbing, cyanosis, or edema. NEURO: Cranial nerves II to XII within normal limits. No focal or lateralizing signs. PSYCH: Alert and oriented to person, place and time. SKIN: Well-perfused good skin turgor. LABS: Reviewed. WBC elevated at 11,000. LFTs within normal limits. EKG: Reviewed normal sinus rhythm. Normal EKG STUDIES: Ultrasound of the gallbladder independently reviewed demonstrating gallstones impacted along the gallbladder infundibulum. This is my independent interpretation. CT of the abdomen and pelvis independently reviewed demonstrating multiple large gallstones in the gallbladder. Fat-containing umbilical hernia. Diaphragmatic hiatal hernia identified. This is my independent interpretation. ASSESSMENT: 1. Acute cholecystitis due to cystic duct obstruction from gallstones 2. Morbid obesity due to excess calories, BMI 36.6 PLAN: 1. Robotic cholecystectomy possible open described. Benefits and risks were described. Patient's elevated risks due to obesity. 2. Heparin for DVT prophylaxis 5000 units. 3. Antibiotic prophylaxis. Surgical - Exam Vital Signs Temp Pulse Resp BP Pulse Ox 97 F L 107 H 20 160/95 99 11/07/21 22:48 11/07/21 22:48 11/07/21 22:48 11/07/21 22:48 11/07/21 22:48 Results - Labs 11/07/21 23:04 11/07/21 23:04 Abnormal Lab Results - Last 24 Hours (Table) 11/07/21 11/07/21 11/07/21 Range/Units 23:04 23:04 23:04 WBC 11.1 H (3.8-10.6) k/uL Hct 46.2 H (34.0-46.0) % Neutrophils # 9.3 H (1.3-7.7) k/uL Sodium 136 L (137-145) mmol/L Carbon Dioxide 21 L (22-30) mmol/L BUN 21 H (7-17) mg/dL Glucose 131 H (74-99) mg/dL Urine Appearance Cloudy H (Clear) Ur Specific [place] 1.036 H (1.001-1.035) Urine Protein 1+ H (Negative) Urine Ketones 2+ H (Negative) Urine Blood Large H (Negative) Ur Leukocyte Esterase Small H (Negative) Urine RBC >182 H (0-5) /hpf Urine WBC 6 H (0-5) /hpf Urine Bacteria Rare H (None) /hpf Urine Mucus Rare H (None) /hpf Diabetes panel 11/07/21 Range/Units 23:04 Sodium 136 L (137-145) mmol/L Potassium 4.1 (3.5-5.1) mmol/L Chloride 105 (98-107) mmol/L Carbon Dioxide 21 L (22-30) mmol/L BUN 21 H (7-17) mg/dL Creatinine 0.85 (0.52-1.04) mg/dL Glucose 131 H (74-99) mg/dL Calcium 9.2 (8.4-10.2) mg/dL AST 24 (14-36) U/L ALT 22 (4-34) U/L Alkaline Phosphatase 85 (38-126) U/L Total Protein 7.4 (6.3-8.2) g/dL Albumin 4.4 (3.5-5.0) g/dL Calcium panel 11/07/21 Range/Units 23:04 Calcium 9.2 (8.4-10.2) mg/dL Albumin 4.4 (3.5-5.0) g/dL Pituitary panel 11/07/21 Range/Units 23:04 Sodium 136 L (137-145) mmol/L Potassium 4.1 (3.5-5.1) mmol/L Chloride 105 (98-107) mmol/L Carbon Dioxide 21 L (22-30) mmol/L BUN 21 H (7-17) mg/dL Creatinine 0.85 (0.52-1.04) mg/dL Glucose 131 H (74-99) mg/dL Calcium 9.2 (8.4-10.2) mg/dL Adrenal panel 11/07/21 Range/Units 23:04 Sodium 136 L (137-145) mmol/L Potassium 4.1 (3.5-5.1) mmol/L Chloride 105 (98-107) mmol/L Carbon Dioxide 21 L (22-30) mmol/L BUN 21 H (7-17) mg/dL Creatinine 0.85 (0.52-1.04) mg/dL Glucose 131 H (74-99) mg/dL Calcium 9.2 (8.4-10.2) mg/dL Total Bilirubin 0.8 (0.2-1.3) mg/dL AST 24 (14-36) U/L ALT 22 (4-34) U/L Alkaline Phosphatase 85 (38-126) U/L Total Protein 7.4 (6.3-8.2) g/dL Albumin 4.4 (3.5-5.0) g/dL Assessment and Plan (1) Acute calculous cholecystitis Current Visit: Yes Status: Acute Code(s): K80.00 - CALCULUS OF GALLBLADDER W ACUTE CHOLECYST W/O OBSTRUCTION SNOMED Code(s): 29903177569102 (2) Morbid obesity due to excess calories Current Visit: Yes Status: Acute Code(s): E66.01 - MORBID (SEVERE) OBESITY DUE TO EXCESS CALORIES SNOMED Code(s): 054013716 (3) BMI 36.0-36.9,adult Current Visit: Yes Status: Acute Code(s): Z68.36 - BODY MASS INDEX [BMI] 36.0-36.9, ADULT SNOMED Code(s): 733704768 (4) Hypothyroidism Current Visit: Yes Status: Acute Code(s): E03.9 - HYPOTHYROIDISM, UNSPECIFIED SNOMED Code(s): 89757066
[2021-11-08] MEDS ORDERED: IV FLUID CONTINUATION 500 ML IV ONE (12:36)
[2021-11-08] MEDS ORDERED: DEXAMETHASONE SOD PHOSPHATE 4 MG/ML 1 ML VIAL IVP ONE (12:37)
[2021-11-08] MEDS ORDERED: MELOXICAM 7.5 MG TAB PO ONE (13:34)
[2021-11-08] MEDS ORDERED: GABAPENTIN 300 MG CAP PO ONE (13:34)
[2021-11-08] MEDS ORDERED: NEOSTIGMINE 1 MG/ML 10 ML VIAL ONE (13:36)
[2021-11-08] MEDS ORDERED: PROPOFOL 10 MG/ML 20 ML VIAL IV ONE (13:36)
[2021-11-08] MEDS ORDERED: GLYCOPYRROLATE 0.2 MG/ML 2 ML VIAL ONE (13:36)
[2021-11-08] MEDS ORDERED: fentaNYL (PF) 50 MCG/ML 2 ML AMP ONE (13:36)
[2021-11-08] MEDS ORDERED: LIDOCAINE 1% INJ 10MG/ML (20 ML MDV) ONE (13:36)
[2021-11-08] MEDS ORDERED: SUCCINYLCHOLINE CHLORIDE 100 MG/5 ML SYR IV ONE (13:36)
[2021-11-08] MEDS ORDERED: MIDAZOLAM 2 MG/2 ML VIAL ONE (13:36)
[2021-11-08] MEDS ORDERED: ROCURONIUM 10 MG/ML (5 ML VIAL) IV ONE (13:36)
--- NOTE | 2021-11-08 13:52 | P.HPADDEND ---
H&P Addendum H&P Addendum Date: 11/08/21 Patient seen and evaluated. She reports strong family history of familial gallbladder disease. Findings consistent with acute cholecystitis. We'll proceed with robotic cholecystectomy. All benefits and risks described.
[2021-11-08] MEDS ORDERED: BUPIVACAINE (PF) 0.25% 30 ML VIAL SQ ONE (14:09)
[2021-11-08] MEDS ORDERED: LACTATED RINGERS 1,000 ML IV ONE (14:17)
[2021-11-08] MEDS ORDERED: LORATADINE 10 MG TAB PO PRN (15:42)
[2021-11-08] MEDS ORDERED: METOCLOPRAMIDE 5 MG/ML 2 ML VIAL IVP PRN (15:43)
--- NOTE | 2021-11-08 15:48 | P.OP ---
Date of Procedure: 11/08/21 Description of Procedure: SURGEON: TOMMY POWELL MD PREOPERATIVE DIAGNOSES: 1. Acute cholecystitis 2. Symptomatic gallstones 3. Morbid obesity due to excess calories, BMI 36.6 4. Hypothyroidism 5. Seasonal ALLERGIES POSTOPERATIVE DIAGNOSES: 1. Acute cholecystitis with cystic duct obstruction due to gallstones 2. Symptomatic gallstones 3. Morbid obesity due to excess calories, BMI 36.6 4. Hypothyroidism 5. Seasonal ALLERGIES OPERATION: Robotic-assisted da Sara Xi laparoscopic cholecystectomy, multiport with FIREFLY ESTIMATED BLOOD LOSS: 20 mL. SPECIMENS REMOVED: Gallbladder. COMPLICATIONS: None. OPERATIVE FINDINGS: 1. Acute cholecystitis due to cystic duct obstruction and distended gallbladder 2. Indocyanine green drain confirms acute cholecystitis with lack of contrast in gallbladder 3. Common bile duct within normal limits, without dilation INDICATIONS: The patient is a 50 year-old female who presents with epigastric right upper quadrant pain, symptomatic gallstones, elevated WBC, and clinical features of acute cholecystitis with presentation of sepsis. Antibiotic management including pain management was prescribed to manage her cholecystitis. Surgical intervention with cholecystectomy was described. Robotic assisted laparoscopic approach was described. Benefits and risks of the procedure including but not limited to bleeding, infection, injury to the biliary tree was reviewed. Informed consent was obtained. DESCRIPTION OF PROCEDURE: Patient was brought to the operating room, placed in supine position. After general induction, the abdomen had been prepped and draped in standard sterile fashion. The robotic da Sara XI system was primed. After a timeout protocol was performed, the patient had been prepped and draped in standard sterile fashion. The patient was injected with indocyanine green. A 5 mm 0 degrees laparoscopic trocar entry was performed along the left upper quadrant. The abdomen insufflated to 15 mmHg pressure which was tolerated well. Diagnostic laparoscopy demonstrated no injury to bowel viscera or mesentery. The liver surface was unremarkable. A moderately distended gallbladder was identified adding complexity to the case. Next, two 8 mm robotic ports were placed along the right upper abdomen. The camera 8-mm port was maintained along the epigastrium. Another 8 mm port was placed along the left upper abdominal wall after exchanging the 5 mm port. Please note that the ports were placed at least 10 to 15 cm away from the target anatomy of the gallbladder. The robot was docked along the left lateral abdomen. The patient was repositioned in reverse Trendelenburg position with the right side up. Using a grasper for arm 3, a grasper for arm 4, including hook cautery for arm 1, the robotic system was docked and primed as described. Instruments were interchanged by the bilingual legal assistant including hook cautery, Bovie cautery and clip appliers. I had sat at the console. The gallbladder was reflected towards the dome of the liver. The gallbladder was moderately distended adding complexity to the case. Moderate edema was found along the cystic triangle including infundibulum. Initial dissection was performed on the gallbladder infundibulum using indocyanine green to illuminate the cystic duct and common bile duct. Due to moderate distention of the infundibulum, dome down technique was performed removing the gallbladder from the hepatic fossa starting from the fundus towards the infundibulum. Using a sponge, the liver was reflected towards the diaphragm and starting at the gallbladder fundus, hook cautery was used to find the avascular plane between the liver and the gallbladder. As the gallbladder was dissected from the hepatic fossa, hemostasis was checked using vessel sealer along the posterior gallbladder. Next, indocyanine green was used to confirm the common bile duct as well as cystic duct. The cystic duct was short and dissection was performed at the junction of the cystic duct and infundibulum. The entire gallbladder was without contrast consistent with acute cholecystitis. The infundibulum was retracted laterally to expose the cystic duct away from the common bile duct. The cystic duct was dissected free from its surrounding tissue. FIREFLY was used to identify the cystic structures. A critical view of safety was obtained. Large PLASTIC clips were used throughout the entire case. Using a clip loftsman, two clips were placed at the junction of the infundibulum and cystic duct. The cystic duct was divided using hook cautery between the gallbladder and clips. Next, the cystic artery was controlled using proximal and distal clips then divided using hook cautery. A total of 4 clips were used. Electro-Bovie cautery and vessel sealer was used to remove the gallbladder without decompression. Hemostasis was checked and found to be adequate. The robot was undocked. I re-scrubbed into the case. A 10 mm Endo Catch bag was used to remove the gallbladder in total via the left upper quadrant incision after widening the incision. The specimen was removed from the abdominal cavity. Ron Avery and 0 Vicryl was used to close the fascial defect of the left upper quadrant. All pneumoperitoneum instruments were evacuated from the abdominal cavity. The incisions were cleansed using dilute hydrogen peroxide. The incisions were reapproximated using 4-0 Monocryl in an interrupted subcuticular fashion. Please note along the trocar sites, local anesthetic was placed as a field block prior to insertion of all instruments. Liquid glue was applied to the skin. At the end of the procedure needle, sponge, and instrument count had been verified correct by the surgical supervisor. The patient was transferred to postanesthesia care unit in stable condition. Intraoperative films were shared with the patient's family who were pleased with the level of care.
[2021-11-08] MEDS ORDERED: ACETAMINOPHEN IV (For NPO) 1,000 MG in EMPTY BAG 1 BAG IVPB ONE (16:30)
[2021-11-08] MEDS: KETOROLAC 30 MG/ML 1 ML VIAL IVP SCH ×2 (18:02→18:05)
[2021-11-08] MEDS: SIMETHICONE 40 MG/0.6 ML DROPS 2,000 MG/30 ML BOTTLE PO SCH ×2 (18:07→22:30)
[2021-11-08 18:28] LABS: Basophils % (A) 0 %; Eosinophils % (A) 0 %; HGB 13.5 gm/dL (11.4-16.0); Lymphocytes # (A) 0.4 k/uL (1.0-4.8); Lymphocytes % (A) 4 %; MCH 29.4 pg (25.0-35.0); MCHC 32.9 g/dL (31.0-37.0); MCV 89.4 fL (80.0-100.0); Monocytes # (A) 0.1 k/uL (0-1.0); Monocytes % (A) 1 %; Neutrophils # (A) 8.5 k/uL (1.3-7.7); Neutrophils % (A) 94 %; Platelet Count 220 k/uL (150-450); RBC 4.58 m/uL (3.80-5.40); RDW 13.4 % (11.5-15.5)
[2021-11-08 18:39] LABS: ALT 40 U/L (4-34); AST 58 U/L (14-36); African American GFR (CKD) >90 (>60 ml/min/1.73 sqM); Albumin 3.5 g/dL (3.5-5.0); Albumin/Globulin Ratio 1.5; Alkaline Phosphatase 64 U/L (38-126); Anion Gap 8 mmol/L; Blood Urea Nitrogen 14 mg/dL (7-17); Calcium 8.1 mg/dL (8.4-10.2); Carbon Dioxide 20 mmol/L (22-30); Chloride 107 mmol/L (98-107); Globulin 2.4 g/dL; Glucose 152 mg/dL (74-99); Non-African American GFR(CKD) 90 (>60 ml/min/1.73 sqM); Potassium 4.4 mmol/L (3.5-5.1); Sodium 135 mmol/L (137-145); Total Protein 5.9 g/dL (6.3-8.2)
[2021-11-08] MEDS ORDERED: HYDROmorphone 1 MG/ML 1 ML SYRINGE IVP PRN (19:19)
--- NOTE | 2021-11-08 19:21 | P.PN ---
Progress Note - Text Progress Note Date: 11/08/21 Discussed with nurse regarding patient's pain management. Patient reports 10 out of 10 pain. Discharge postponed for tomorrow for antibiotics including pain management.
[2021-11-09] MEDS: ACETAMINOPHEN TAB 500 MG TAB PO SCH ×3 (00:14→14:50)
[2021-11-09] MEDS: KETOROLAC 30 MG/ML 1 ML VIAL IVP SCH ×3 (00:14→14:36)
[2021-11-09] MEDS: PIPERACILLIN-TAZOBACTAM 3.375 GM in SODIUM CHLORIDE 0.9% 100 ML IVPB SCH ×2 (02:14→11:46)
[2021-11-09] MEDS: SODIUM CHLORIDE 0.9% 1,000 ML IV SCH (03:07)
[2021-11-09] MEDS ORDERED: LEVOTHYROXINE 88 MCG TAB PO SCH (06:30)
[2021-11-09] MEDS ORDERED: HYDROmorphone 1 MG/ML 1 ML SYRINGE IVP PRN (07:00)
[2021-11-09] MEDS ORDERED: ONDANSETRON 4 MG/2 ML VIAL IVP PRN (07:00)
[2021-11-09] MEDS: SIMETHICONE 40 MG/0.6 ML DROPS 2,000 MG/30 ML BOTTLE PO SCH ×2 (08:04→14:50)
[2021-11-09 09:26] LABS: Basophils # (A) 0.02 X 10*3/uL (0.00-0.10); Basophils % (A) 0.2 %; Eosinophils # (A) 0.01 X 10*3/uL (0.04-0.35); Eosinophils % (A) 0.1 %; HCT 36.5 % (37.2-46.3); HGB 12.1 g/dL (12.0-15.0); Immature Grans, Automated 0.4 %; Lymphocytes # (A) 1.04 X 10*3/uL (0.90-5.00); MCH 28.7 pg (27.0-32.0); MCHC 33.2 g/dL (32.0-37.0); MCV 86.5 fL (80.0-97.0); Mean Platelet Volume 10.4 fL (9.5-12.2); Monocytes # (A) 0.75 X 10*3/uL (0.20-1.00); Monocytes % (A) 7.2 %; NRBC Per 100 WBC 0 /100 WBCS (0.0-0.0); Neutrophils # (A) 8.51 X 10*3/uL (1.80-7.70); Neutrophils % (A) 82.1 %; Platelet Count 177 X 10*3/uL (140-440); RBC 4.22 X 10*6/uL (4.10-5.20); RDW 13.2 % (11.5-14.5); WBC 10.37 X 10*3/uL (4.50-10.00)
[2021-11-09 11:15] LABS: African American GFR (CKD) 100.3 (60.0-200.0); Albumin 3.6 g/dL (3.8-4.9); Anion Gap 12.2 mmol/L (10.00-18.00); BUN/Creat Ratio 16.5 Ratio (12.00-20.00); Blood Urea Nitrogen 13.2 mg/dL (9.0-27.0); Calcium 7.9 mg/dL (8.7-10.3); Carbon Dioxide 19.8 mmol/L (20.0-27.5); Globulin 1.8 g/dL (1.6-3.3); Non-African American GFR(CKD) 86.6 (60.0-200.0); Total Bilirubin 0.5 mg/dL (0.30-1.20); Total Protein 5.4 g/dL (6.2-8.2)
--- NOTE | 2021-11-09 12:09 | P.DS ---
Providers Date of admission: 11/08/21 04:14 Expected date of discharge: 11/09/21 Attending physician: Eugenia Ta Consults: 11/08/21 06:04 Consult Physician Routine Consulting Provider: [facility] Consult Reason/Comments: [facility] Do you want consulting provider notified?: Yes Primary care physician: Yanely Mcneal Hospital Course: Discharge diagnosis 1. Acute cholecystitis with cystic duct obstruction due to gallstones 2. Symptomatic gallstones 3. Morbid obesity due to excess calories, BMI 36.6 4. Hypothyroidism 5. Seasonal ALLERGIES Hospital course The patient is a 50 year-old female who presents with epigastric right upper quadrant pain, symptomatic gallstones, elevated WBC, and clinical features of acute cholecystitis with presentation of sepsis. Antibiotic management including pain management was prescribed to manage her cholecystitis. Patient status post Robotic-assisted da Sara Xi laparoscopic cholecystectomy. Patient tolerated surgery well. Her pain is controlled. She is tolerating diet. She's up and ambulating. She is having flatus. She is afebrile. She is stable for discharge. Physician Cornice Upholsterer note has been reviewed by physician. Signing provider agrees with the documented findings, assessment, and plan of care. Patient Condition at Discharge: Stable Plan - Discharge Summary Discharge Rx Participant: Yes New Discharge Prescriptions: New Ibuprofen [Motrin] 600 mg PO Q8HR PRN #30 tab PRN Reason: Pain Amoxicillin/Potassium Clav [Augmentin 875-125 Tablet] 1 tab PO Q12HR 10 Days #20 tab Simethicone [Gas-X] 125 mg PO AC-TID PRN #20 capsule PRN Reason: Pain Acetaminophen Tab [Tylenol Tab] 1,000 mg PO Q6HR PRN #30 tablet PRN Reason: Pain Continue Cetirizine HCl [Zyrtec] 10 mg PO DAILY PRN PRN Reason: Allergy Symptoms Levothyroxine Sodium [Synthroid] 88 mcg PO DAILY Discharge Medication List Cetirizine HCl [Zyrtec] 10 mg PO DAILY PRN 01/22/17 [History] Acetaminophen Tab [Tylenol Tab] 1,000 mg PO Q6HR PRN #30 tablet 11/08/21 [Rx] Ibuprofen [Motrin] 600 mg PO Q8HR PRN #30 tab 11/08/21 [Rx] Levothyroxine Sodium [Synthroid] 88 mcg PO DAILY 11/08/21 [History] Simethicone [Gas-X] 125 mg PO AC-TID PRN #20 capsule 11/08/21 [Rx] Amoxicillin/Potassium Clav [Augmentin 875-125 Tablet] 1 tab PO Q12HR 10 Days #20 tab 11/09/21 [Rx] Follow up Appointment(s)/Referral(s): Eugenia Ta MD [STAFF PHYSICIAN] - 11/13/21 (Telehealth available) Yanely Mcneal MD [Primary Care Provider] - 1-2 days Patient Instructions/Handouts: *[facility] - Laparoscopic Cholecystectomy Discharge Instructions, *[facility] - Managing Your Pain After Surgery Without Opioids, *[facility] - (Anesthesia) Discharge Instructions Outpatient Surgery, Gallstones (ED), Low Fat Diet (ED) Activity/Diet/Wound Care/Special Instructions: Recommend low-fat diet for the next 2 days. No lifting over 10 pounds in 2 weeks until Nov 22. May shower. No bath tub soaks for two weeks until Nov 22 Diet as tolerated. Use Tylenol, simethicone and ibuprofen or Aleve scheduled for the next 24-48 hours for best pain relief. Use ice along incisions for today to prevent swelling. Patient can have either teleconference or face to face office visit with Dr. Ta on 11/13/2021 Discharge Disposition: HOME SELF-CARE
[2021-11-09 14:08] VITALS: BP 119/68; PULSE 96; RESP 18; TEMP 98.7
== END 2021-11-09 15:00 | disposition home or self-care (01) ==
LOC: EC 22:44 → 6NMEDSUR 11-08 04:14
PROVIDERS: ADMIT Surgery Plastic and Reconstructive Surgery; ATTEND Surgery Plastic and Reconstructive Surgery
DX: K80.13 Calculus of gallbladder with acute and chronic cholecystitis with obstruction (principal); K44.9 Diaphragmatic hernia without obstruction or gangrene; E89.0 Postprocedural hypothyroidism; N20.0 Calculus of kidney; N28.1 Cyst of kidney, acquired; E66.01 Morbid (severe) obesity due to excess calories; Z68.36 Body mass index [BMI] 36.0-36.9, adult; Z79.890 Hormone replacement therapy; J30.2 Other seasonal allergic rhinitis; Z98.891 History of uterine scar from previous surgery; Z83.79 Family history of other diseases of the digestive system
CPT/HCPCS: 47562; S2900; 36415; 74022; 74176; 76705; 80053; 81001; 81025; 82150; 83690; 84484; 85025; 87040; 87635; 88304; 93005; 96361; 96374; 99285

== ENCOUNTER → 2023-10-14 | Outpatient (CLI) | payer BC ==
--- NOTE | 2023-10-14 14:15 | US ---
EXAMINATION TYPE: US pelvic complete DATE OF EXAM: 10/14/2023 COMPARISON: none CLINICAL INDICATION: Female, 52 years old with history of R10.9 UNSPECIFIED ABDOMINAL PAIN; assess fo r possible right inguinal hernia TECHNIQUE: Transabdominal (TA). Transabdominal sonographic images of the pelvis were acquired. Date of LMP: 1 yr ago EXAM MEASUREMENTS: Uterus: 7.9 x 2.8 x 3.7 cm Endometrial Stripe: 0.3 cm Right Ovary: 2.2 x 1.2 x 2.2 cm Left Ovary: 2.3 x 1.1 x 1.4 cm 1. Uterus: Anteverted wnl 2. Endometrium: wnl 3. Right Ovary: wnl 4. Left Ovary: wnl 5. Bilateral Adnexa: wnl 6. Posterior cul-de-sac: wnl Pt also presented with possible rt inguinal hernia. Scanned over the pt's area of concern, performed valsalva manuevers as well. No abnormality seen by US. IMPRESSION: 1. Normal pelvic ultrasound. 2. No definite inguinal hernia.
== END | disposition home or self-care (01) ==
LOC: RADUSWWP 13:20
PROVIDERS: ATTEND Internal Medicine
DX: R10.9 Unspecified abdominal pain (principal)
CPT/HCPCS: 76856

== ENCOUNTER → 2023-11-03 | Outpatient (CLI) | payer BC ==
--- NOTE | 2023-11-04 08:18 | MM ---
Reason for Exam: Screening (asymptomatic). Last mammogram was performed 4 year(s) and 0 month(s) ago. Patient History: Menarche at age 12. First Full-Term at age 38. Late child-bearing (after 30). Postmenopausal. Patient used Hormonal Contraceptives for 2 years. Risk Values: Annabella 5 year model risk: 1.5%. NCI Lifetime model risk: 13.0%. Prior Study Comparison: 02/14/2017 Bilateral Screening Mammogram, [facility]. 11/04/2019 Bilateral Screening Mammogram, [facility]. Tissue Density: The breast tissue is heterogeneously dense. This may lower the sensitivity of mammography. Findings: Analyzed By CAD. There is no suspicious group of microcalcifications or new suspicious mass in either breast. Overall Assessment: Benign, BI-RAD 2 Management: Screening Mammogram of both breasts in 1 year. . Patient should continue monthly self-breast exams. A clinical breast exam by your physician is recommended on an annual basis. This exam should not preclude additional follow-up of suspicious palpable abnormalities. Note on Annabella scores and lifetime risk: 1. A Annabella score greater than 3% is considered moderate risk. If this is the case, consider specialist referral to assess eligibility for a risk reducing agent. 2. If overall lifetime risk for the development of breast cancer is 20% or higher, the patient may qualify for future screening with alternating mammogram and breast MRI. Electronically signed and approved by: Dhruv Galarza M.D. Radiologis
== END | disposition home or self-care (01) ==
LOC: RADMAMWWP 11:19
PROVIDERS: ATTEND Internal Medicine
DX: Z12.31 Encounter for screening mammogram for malignant neoplasm of breast (principal); Z78.0 Asymptomatic menopausal state
CPT/HCPCS: 77063; 77067

== ENCOUNTER → 2024-02-20 | Day surgery (SDC) | payer BC ==
[2024-02-13 12:56] VITALS: BMI 36.6
[~2024-02-20] MED LIST: LACTATED RINGERS 1,000 ML IV SCH; PROPOFOL 10 MG/ML 20 ML VIAL IV ONE
[2024-02-20] MEDS: LACTATED RINGERS 1,000 ML IV ONE ×2 (14:00→14:20)
[2024-02-20 14:22] VITALS: TEMP 98.7
--- NOTE | 2024-02-20 16:02 | P.PCN ---
Date of Procedure: 02/20/24 Procedure(s) Performed: BRIEF HISTORY: Patient is a 53-year-old pleasant white female scheduled for an elective colonoscopy as a part of screening for colon cancer. PROCEDURE PERFORMED: Colonoscopy. PREOPERATIVE DIAGNOSIS: Screening for colon cancer. IV sedation per Anesthesia. PROCEDURE: After informed consent was obtained, the patient, was brought into the endoscopy unit. IV sedation was administered by Anesthesia under continuous monitoring. Digital rectal examination was normal. Initially the Olympus CF-160 flexible video colonoscope was then inserted in the rectum, gradually advanced into the cecum without any difficulty. Careful examination was performed as the scope was gradually being withdrawn. Ileocecal valve and the appendiceal orifice were visualized and appeared normal. Prep was excellent. Mucosa of the cecum, ascending colon, transverse colon, descending colon, sigmoid colon, and rectum appeared normal. Retroflexion was performed in the rectum and no lesions were seen. The patient tolerated the procedure well. IMPRESSION: Normal-appearing colon from rectum to cecum with no evidence of colorectal neoplasia. RECOMMENDATIONS: Findings of this examination were discussed with the patient as well as her family. She was advised to have repeat screening colonoscopy 10 years..
[2024-02-20 16:09] VITALS: RESP 16
[2024-02-20 16:57] VITALS: BP 116/68; PULSE 95
== END ==
LOC: ORWHC2ENDO 13:18
PROVIDERS: ATTEND Internal Medicine Gastroenterology
DX: Z12.11 Encounter for screening for malignant neoplasm of colon (principal); E03.9 Hypothyroidism, unspecified; Z88.8 Allergy status to other drugs, medicaments and biological substances; Z79.890 Hormone replacement therapy; Z79.899 Other long term (current) drug therapy
CPT/HCPCS: 81025; 45378; J2704

== ENCOUNTER → 2025-01-07 | Outpatient (CLI) | payer BC ==
--- NOTE | 2025-01-07 11:21 | XR ---
EXAMINATION TYPE: XR chest 2V DATE OF EXAM: 01/07/2025 CLINICAL INDICATION: Female, 54 years old with history of D45 POLYCYTHEMIA VERA, TECHNIQUE: Frontal and lateral views of the chest are obtained. COMPARISON: None FINDINGS: There is no focal air space opacity, pleural effusion, or pneumothorax seen. Cardiomegaly is seen. The osseous structures are intact. IMPRESSION: Cardiomegaly without acute pulmonary process. [facility], , 01/07/2025 11:19 AM
== END | disposition home or self-care (01) ==
LOC: RADXRMAIN 11:03
PROVIDERS: ATTEND Internal Medicine Hematology & Oncology
DX: I51.7 Cardiomegaly (principal); D45 Polycythemia vera; E03.9 Hypothyroidism, unspecified
CPT/HCPCS: 71046